=== PATIENT | female | born 1940 ===

== ENCOUNTER 2020-01-24 11:41 | Day surgery (SDC) | payer MEDICARE ==
[~2020-01-24] VITALS: Ht 154.9 cm; Wt 80.4 kg
[2020-01-24 10:34] VITALS: BP 179/99
[2020-01-24] MEDS ORDERED: NORMAL SALINE IV ONE (12:15)
[2020-01-24] MEDS ORDERED: ALTEPLASE IV ONE (12:15)
[2020-01-24] MEDS ORDERED: FURO20TA4 PO (12:28)
[2020-01-24] MEDS ORDERED: METF-950 PO (12:28)
[2020-01-24] MEDS ORDERED: LISI-604 PO (12:28)
[2020-01-24] MEDS ORDERED: LEVO100T9 PO (12:28)
[2020-01-24] MEDS ORDERED: SIMV-42 PO (12:28)
[2020-01-24] MEDS ORDERED: PARO10TA4 PO (12:28)
[2020-01-24] MEDS ORDERED: iohexol 300 MG/1 ML 50ml polymer ONE (13:31)
[2020-01-24 13:53] VITALS: BP 135/65
[2020-01-24 14:04] VITALS: BP 150/85
[2020-01-24] MEDS ORDERED: heparin sodium, porcine/PF 100unit/ml 5ML syringe IV ONE (14:15)
[2020-01-24 14:30] VITALS: BP 109/50
[2020-01-24 14:45] VITALS: BP 127/72
[2020-01-24 15:15] VITALS: BP 136/68
== END 2020-01-24 16:00 | disposition home or self-care (01) ==
LOC: SSTAY O 11:41
PROVIDERS: ATTEND Radiology Vascular & Interventional Radiology
DX: Z45.2 Encounter for adjustment and management of vascular access device (principal); C50.912 Malignant neoplasm of unspecified site of left female breast; Z88.5 Allergy status to narcotic agent; Z79.899 Other long term (current) drug therapy
CPT/HCPCS: 36598; J1642; J2997; Q9967